=== PATIENT | male | born 1960 | race Caucasian/White ===

== ENCOUNTER 2020-12-15 11:45 | Inpatient (IN) ==
[2020-12-15] MEDS ORDERED: SODIUM CHLORIDE 0.9% 1,000 ML IV STA (12:25)
[2020-12-15 12:43] LABS: Basophils # 0.1 10*3/uL (0.0-0.2); Basophils % 0.4 % (0.0-0.8); Eosinophils # 0.1 10*3/uL (0.0-0.87); Eosinophils % 0.4 % (0.00-10.9); Hematocrit 35.2 VOL% (42.0-52.0); Hemoglobin 12.8 GM/DL (14.0-18.0); Immature Granulocytes Absolute 0.13 #; Lymphocytes # 1.9 10*3/uL (1.4-4.0); Lymphocytes % 14.2 % (21.2-54.2); Mean Corpuscular HGB Conc 36.4 GM/DL (32-36); Monocytes % 10.3 % (1.7-12.7); Neutrophils % 73.7 % (38.7-73.9); Platelet Count 358 T/CUMM (130-400); Red Blood Count 3.63 MC/CUMM (3.8-5.5); Red Cell Distribution Width 12.1 % (9.3-17.3); White Blood Count 13.5 T/CUMM (4-12)
[2020-12-15 13:10] LABS: Alanine Aminotransferase 21 U/L (16-61); Albumin 3.2 G/DL (3.4-5.0); Alkaline Phosphatase 90 U/L (45-117); Aspartate Amino Transferase 27 U/L (0-37); Blood Urea Nitrogen 13 MG/DL (7-18); Calcium 8.7 MG/DL (8.5-10.1); Carbon Dioxide 30 MMOL/L (21-32); Estimated Glom Filtration Rate 74 ML/MIN; Glucose 109 MG/DL (74-106); Osmolality,Calculated 258.9 MOS/KG (273-304); Sodium 129 MMOL/L (136-145); Total Protein 6.1 G/DL (6.4-8.2)
[2020-12-15 13:11] LABS: Potassium 2.5 MMOL/L (3.5-5.1)
[2020-12-15] MEDS ORDERED: SODIUM CHLOR 0.9% KCL 40 MEQ 40 MEQ/1,000 ML BAG IV SCH (13:30)
[2020-12-15] MEDS ORDERED: GLUCAGON 1 MG VIAL IM PRN (14:53)
[2020-12-15] MEDS ORDERED: DEXTROSE 50% 25 GM/50 ML VIAL IV PRN (14:53)
[2020-12-15] MEDS ORDERED: ONDANSETRON 4 MG/2 ML VIAL IV PRN (14:54)
[2020-12-15] MEDS ORDERED: ALBUTEROL 2.5 MG/3 ML NEB RESP TX PRN (14:54)
[2020-12-15] MEDS ORDERED: POTASSIUM CHLORIDE 20 MEQ/15 ML UDCUP PO ONE (14:56)
[2020-12-15] MEDS ORDERED: MAGNESIUM SULF RIDER 2 GM/50 ML PREMIX IV PRN (14:57)
[2020-12-15] MEDS ORDERED: MAGNESIUM SULF RIDER 4 GM/100 ML PREMIX IV PRN (14:57)
[2020-12-15] MEDS ORDERED: chlordiazePOXIDE 25 MG CAPSULE PO PRN (14:58)
[2020-12-15] MEDS ORDERED: ENOXAPARIN 40 MG/0.4 ML SYRINGE SUBCUT SCH (15:00)
[2020-12-15] MEDS ORDERED: NICOTINE 21 MG/24 HR PATCH TRANSDERM PRN (15:07)
[2020-12-15] MEDS: THIAMINE 100 MG TABLET PO SCH (18:25)
[2020-12-15] MEDS: FOLIC ACID 1 MG TABLET PO SCH (18:25)
[2020-12-15] MEDS: SODIUM CHLOR 0.9% KCL 20 MEQ 20 MEQ/1,000 ML BAG IV SCH (18:30)
[2020-12-15] MEDS: PANTOPRAZOLE 40 MG VIAL IV SCH ×2 (19:11→21:10)
[2020-12-16 02:22] LABS: Basophils % 0.4 % (0.0-0.8); Eosinophils # 0.1 10*3/uL (0.0-0.87); Eosinophils % 1.2 % (0.00-10.9); Hematocrit 32.9 VOL% (42.0-52.0); Hemoglobin 11.4 GM/DL (14.0-18.0); Immature Granulocytes % 0.7 %; Immature Granulocytes Absolute 0.07 #; Lymphocytes # 2.6 10*3/uL (1.4-4.0); Lymphocytes % 24.1 % (21.2-54.2); Mean Corpuscular HGB Conc 34.7 GM/DL (32-36); Mean Corpuscular Volume 99.1 FL (87-102); Mean Platelet Volume 9.9 FL (9.6-12.0); Monocytes % 9.3 % (1.7-12.7); Neutrophils % 64.3 % (38.7-73.9); Platelet Count 259 T/CUMM (130-400); Red Blood Count 3.32 MC/CUMM (3.8-5.5); Red Cell Distribution Width 12.2 % (9.3-17.3); White Blood Count 10.7 T/CUMM (4-12)
[2020-12-16 02:40] LABS: Calcium 8.1 MG/DL (8.5-10.1); Osmolality,Calculated 262.5 MOS/KG (273-304); Potassium 2.6 MMOL/L (3.5-5.1)
[2020-12-16] MEDS: SODIUM CHLOR 0.9% KCL 20 MEQ 20 MEQ/1,000 ML BAG IV SCH ×3 (06:18→23:09)
[2020-12-16] MEDS ORDERED: diphenhydrAMINE CAP 25 MG CAPSULE PO PRN (06:41)
[2020-12-16] MEDS ORDERED: MELATONIN 3 MG TABLET PO PRN (06:42)
[2020-12-16] MEDS: FOLIC ACID 1 MG TABLET PO SCH (08:40)
[2020-12-16] MEDS: THIAMINE 100 MG TABLET PO SCH (08:40)
[2020-12-16] MEDS: MULTIVITAMIN (BEROCCA) TABLET PO SCH (08:40)
[2020-12-16] MEDS: PANTOPRAZOLE 40 MG VIAL IV SCH ×2 (08:40→21:22)
[2020-12-16] MEDS ORDERED: POTASSIUM CHLORIDE 20 MEQ/15 ML UDCUP PO SCH ×2 (09:30→15:00)
[2020-12-16] MEDS: POTASSIUM BICARB EFFERVESCENT 20 MEQ TAB.EFF PO SCH ×3 (13:30→21:20)
[2020-12-16] MEDS: GABAPENTIN 100 MG CAPSULE PO SCH ×2 (15:13→21:20)
[2020-12-17 05:50] LABS: Calcium 8.2 MG/DL (8.5-10.1); Osmolality,Calculated 266.1 MOS/KG (273-304)
[2020-12-17] MEDS: SODIUM CHLOR 0.9% KCL 20 MEQ 20 MEQ/1,000 ML BAG IV SCH ×4 (06:12→20:53)
[2020-12-17] MEDS: POTASSIUM CHLORIDE RIDER 10 MEQ/100 ML PREMIX IV PRN ×2 (06:54→13:23)
[2020-12-17] MEDS: LACTATED RINGERS 1,000 ML IV SCH (07:26)
[2020-12-17] MEDS ORDERED: LIDOCAINE 2% 5 ML VIAL ONE (08:31)
[2020-12-17] MEDS ORDERED: fentaNYL 100 MCG/2 ML VIAL ONE (08:31)
[2020-12-17] MEDS ORDERED: propofoL 200 MG/20 ML VIAL IV ONE (08:31)
[2020-12-17] MEDS: MULTIVITAMIN (BEROCCA) TABLET PO SCH (10:13)
[2020-12-17] MEDS: POTASSIUM BICARB EFFERVESCENT 20 MEQ TAB.EFF PO SCH ×4 (10:13→20:53)
[2020-12-17] MEDS: GABAPENTIN 100 MG CAPSULE PO SCH ×3 (10:13→20:53)
[2020-12-17] MEDS: THIAMINE 100 MG TABLET PO SCH (10:13)
[2020-12-17] MEDS: FOLIC ACID 1 MG TABLET PO SCH (10:13)
[2020-12-17] MEDS: LOSARTAN/HCTZ 50-12.5 MG TABLET PO SCH (10:13)
[2020-12-17] MEDS: PANTOPRAZOLE 40 MG VIAL IV SCH ×2 (10:14→20:53)
[2020-12-18] MEDS: ACETAMINOPHEN 325 MG TABLET PO PRN ×2 (05:03→09:55)
[2020-12-18] MEDS: SODIUM CHLOR 0.9% KCL 20 MEQ 20 MEQ/1,000 ML BAG IV SCH (07:43)
[2020-12-18] MEDS: LACTATED RINGERS 1,000 ML IV SCH (07:43)
[2020-12-18] MEDS: MULTIVITAMIN (BEROCCA) TABLET PO SCH (08:36)
[2020-12-18] MEDS: PANTOPRAZOLE 40 MG VIAL IV SCH (08:37)
[2020-12-18] MEDS: THIAMINE 100 MG TABLET PO SCH (08:37)
[2020-12-18] MEDS: GABAPENTIN 100 MG CAPSULE PO SCH (08:37)
[2020-12-18] MEDS: POTASSIUM BICARB EFFERVESCENT 20 MEQ TAB.EFF PO SCH (08:37)
[2020-12-18] MEDS: LOSARTAN/HCTZ 50-12.5 MG TABLET PO SCH (08:37)
[2020-12-18] MEDS: FOLIC ACID 1 MG TABLET PO SCH (08:38)
[2020-12-18 11:23] VITALS: BP 151/90
== END 2020-12-18 13:38 | disposition home or self-care (01) | DRG 392 ==
LOC: N.ED 11:45 → N.EDINP 14:53 → SUATTDRO 14:53 → N.EDINP 17:46 → N.3E 18:04
PROVIDERS: ADMIT Emergency Medicine; ATTEND Hospitalist

== ENCOUNTER 2021-01-02 12:03 | Observation (INO) ==
[2021-01-02 13:03] LABS: Basophils % 0.1 % (0.0-0.8); Eosinophils % 0.5 % (0.00-10.9); Hematocrit 31.4 VOL% (42.0-52.0); Hemoglobin 10.8 GM/DL (14.0-18.0); Immature Granulocytes % 0.9 %; Immature Granulocytes Absolute 0.08 #; Lymphocytes # 1.2 10*3/uL (1.4-4.0); Lymphocytes % 13.8 % (21.2-54.2); Mean Corpuscular HGB Conc 34.4 GM/DL (32-36); Mean Corpuscular Volume 100.3 FL (87-102); Mean Platelet Volume 9.6 FL (9.6-12.0); Monocytes % 9.4 % (1.7-12.7); Neutrophils % 75.3 % (38.7-73.9); Platelet Count 246 T/CUMM (130-400); Red Blood Count 3.13 MC/CUMM (3.8-5.5); Red Cell Distribution Width 12.9 % (9.3-17.3); White Blood Count 8.8 T/CUMM (4-12)
[2021-01-02 13:17] LABS: Albumin 2.7 G/DL (3.4-5.0); Bilirubin,Total 0.6 MG/DL (0.20-1.00); Calcium 7.4 MG/DL (8.5-10.1); Osmolality,Calculated 267.4 MOS/KG (273-304); Potassium 2.8 MMOL/L (3.5-5.1); Total Protein 5.6 G/DL (6.4-8.2)
[2021-01-02 13:24] LABS: INR 1.2; PT Patient Result 13.2 SECS (10.5-12.0)
[2021-01-02 13:37] LABS: Barbiturates Screen,Urine Negative (Negative); Benzodiazepines Screen,Urine Negative (Negative); Cannabinoid Screen,Urine Positive (Negative); Opiate Screen,Urine Positive (Negative); Phencyclidine Screen,Urine Negative (Negative)
[2021-01-02] MEDS ORDERED: SODIUM CHLORIDE 0.9% 2,000 ML IV STA (14:09)
[2021-01-02] MEDS ORDERED: VANCOMYCIN INJ 1,000 MG in SODIUM CHLORIDE 0.9% 250 ML IV STA (14:20)
[2021-01-02] MEDS ORDERED: PIPERACILLIN/TAZOBACTAM 3,375 MG in SODIUM CHLORIDE 0.9% 100 ML IV STA (14:20)
[2021-01-02] MEDS ORDERED: MAGNESIUM SULF RIDER 4 GM/100 ML PREMIX IV PRN (15:41)
[2021-01-02] MEDS ORDERED: MAGNESIUM SULF RIDER 2 GM/50 ML PREMIX IV PRN (15:41)
[2021-01-02] MEDS ORDERED: ACETAMINOPHEN 325 MG TABLET PO PRN (15:42)
[2021-01-02] MEDS ORDERED: DEXTROSE 50% 25 GM/50 ML VIAL IV PRN (15:42)
[2021-01-02] MEDS ORDERED: NICOTINE 21 MG/24 HR PATCH TRANSDERM PRN (15:42)
[2021-01-02] MEDS ORDERED: LACTULOSE 20 GM/30 ML UDCUP PO PRN (15:42)
[2021-01-02] MEDS ORDERED: ONDANSETRON 4 MG/2 ML VIAL IV PRN (15:42)
[2021-01-02] MEDS ORDERED: GLUCAGON 1 MG VIAL IM PRN (15:42)
[2021-01-02] MEDS ORDERED: SIMETHICONE CHEW 125 MG TABLET PO PRN (15:42)
[2021-01-02] MEDS: DEXT 5% NACL 0.9% KCL 40 MEQ 40 MEQ/1,000 ML BAG IV SCH (16:02)
[2021-01-02] MEDS: LACTULOSE 20 GM/30 ML UDCUP PO SCH ×2 (16:15→21:00)
[2021-01-02] MEDS: ENOXAPARIN 40 MG/0.4 ML SYRINGE SUBCUT SCH (16:15)
[2021-01-02] MEDS: PANTOPRAZOLE 40 MG TABLET PO SCH (21:00)
[2021-01-02] MEDS: PIPERACILLIN/TAZOBACTAM 3,375 MG in SODIUM CHLORIDE 0.9% 100 ML IV SCH (23:45)
[2021-01-02] MEDS: ALBUTEROL 2.5 MG/3 ML NEB RESP TX PRN (23:58)
[2021-01-03] MEDS: ALBUTEROL/IPRATROPIUM 3 ML NEB RESP TX SCH ×5 (00:05→20:00)
[2021-01-03 02:23] LABS: Basophils % 0.1 % (0.0-0.8); Eosinophils # 0.2 10*3/uL (0.0-0.87); Hematocrit 30.9 VOL% (42.0-52.0); Hemoglobin 10.4 GM/DL (14.0-18.0); Immature Granulocytes % 0.9 %; Immature Granulocytes Absolute 0.07 #; Lymphocytes % 24.3 % (21.2-54.2); Mean Corpuscular HGB Conc 33.7 GM/DL (32-36); Mean Corpuscular Volume 101.6 FL (87-102); Mean Platelet Volume 9.3 FL (9.6-12.0); Monocytes % 11.7 % (1.7-12.7); Platelet Count 209 T/CUMM (130-400); Red Blood Count 3.04 MC/CUMM (3.8-5.5); Red Cell Distribution Width 13.1 % (9.3-17.3); White Blood Count 8.2 T/CUMM (4-12)
[2021-01-03 02:46] LABS: Albumin 2.5 G/DL (3.4-5.0); Bilirubin,Total 1.5 MG/DL (0.20-1.00); Calcium 7.2 MG/DL (8.5-10.1); Osmolality,Calculated 267.1 MOS/KG (273-304); Potassium 2.9 MMOL/L (3.5-5.1); Total Protein 5.7 G/DL (6.4-8.2)
[2021-01-03 02:49] LABS: Bilirubin,Urine Negative (Negative); Blood, Urine Negative (Negative); Glucose,Urine (UA) Negative (Negative); Ketones,Urine Negative (Negative); Mucus,Urine Occasional /LPF (Occasional); Nitrite,Urine Negative (Negative); Protein,Urine Negative; RBC,Urine 2 /HPF (0-4); Squamous Epithelial Cell,Urine Occasional /HPF (0-10); Urine Appearance CLEAR (Clear); Urine Color Yellow (Yellow); Urine Specific Gravity 1.044 (1.001-1.035); Urine Urobilinogen < 2.0 EU/DL (0.2-1.0)
[2021-01-03] MEDS: ALBUTEROL 2.5 MG/3 ML NEB RESP TX PRN ×2 (05:19→09:58)
[2021-01-03] MEDS: DEXT 5% NACL 0.9% KCL 40 MEQ 40 MEQ/1,000 ML BAG IV SCH ×2 (06:12→17:23)
[2021-01-03] MEDS: PIPERACILLIN/TAZOBACTAM 3,375 MG in SODIUM CHLORIDE 0.9% 100 ML IV SCH (06:13)
[2021-01-03] MEDS: THIAMINE 100 MG TABLET PO SCH (09:00)
[2021-01-03] MEDS: MULTIVITAMIN (CENTRUM) TABLET PO SCH (09:00)
[2021-01-03] MEDS: PANTOPRAZOLE 40 MG TABLET PO SCH ×3 (09:00→21:19)
[2021-01-03] MEDS: FOLIC ACID 1 MG TABLET PO SCH (09:00)
[2021-01-03] MEDS: LACTULOSE 20 GM/30 ML UDCUP PO SCH ×2 (09:02→21:21)
[2021-01-03] MEDS: POTASSIUM CHLORIDE 20 MEQ TABLET PO PRN ×3 (13:02→17:25)
[2021-01-03] MEDS: ENOXAPARIN 40 MG/0.4 ML SYRINGE SUBCUT SCH (17:25)
[2021-01-04] MEDS: ALBUTEROL/IPRATROPIUM 3 ML NEB RESP TX SCH ×4 (02:51→11:16)
[2021-01-04 05:39] LABS: Calcium 7.4 MG/DL (8.5-10.1); Osmolality,Calculated 274.5 MOS/KG (273-304); Potassium 4.1 MMOL/L (3.5-5.1)
[2021-01-04] MEDS: DEXT 5% NACL 0.9% KCL 40 MEQ 40 MEQ/1,000 ML BAG IV SCH (06:01)
[2021-01-04] MEDS ORDERED: AZITHROMYCIN 250 MG TABLET PO SCH (09:00)
[2021-01-04] MEDS: FOLIC ACID 1 MG TABLET PO SCH (09:36)
[2021-01-04] MEDS: MULTIVITAMIN (CENTRUM) TABLET PO SCH (09:37)
[2021-01-04] MEDS: THIAMINE 100 MG TABLET PO SCH (09:37)
[2021-01-04] MEDS: LACTULOSE 20 GM/30 ML UDCUP PO SCH (09:37)
[2021-01-04] MEDS: PANTOPRAZOLE 40 MG TABLET PO SCH (09:37)
[2021-01-04 11:29] VITALS: BP 120/65
== END 2021-01-04 14:05 | disposition home or self-care (01) ==
LOC: N.EDINP 12:03 → N.ED 12:03 → SUATTDRO 14:54 → N.3E 16:09
PROVIDERS: ADMIT Internal Medicine; ATTEND Internal Medicine

== ENCOUNTER 2021-01-17 16:21 | Inpatient (IN) ==
[2021-01-17] MEDS ORDERED: SODIUM CHLORIDE 0.9% 500 ML IV STA (18:59)
[2021-01-17] MEDS ORDERED: PIPERACILLIN/TAZOBACTAM 3,375 MG in SODIUM CHLORIDE 0.9% 100 ML IV STA (18:59)
[2021-01-17 19:04] LABS: Basophils % 0.3 % (0.0-0.8); Eosinophils # 0.1 10*3/uL (0.0-0.87); Eosinophils % 0.7 % (0.00-10.9); Hematocrit 34.9 VOL% (42.0-52.0); Hemoglobin 12.6 GM/DL (14.0-18.0); Immature Granulocytes % 0.4 %; Immature Granulocytes Absolute 0.05 #; Lymphocytes # 2.4 10*3/uL (1.4-4.0); Mean Corpuscular HGB Conc 36.1 GM/DL (32-36); Mean Platelet Volume 9.5 FL (9.6-12.0); Monocytes % 8.9 % (1.7-12.7); Neutrophils % 69.7 % (38.7-73.9); Platelet Count 334 T/CUMM (130-400); Red Blood Count 3.56 MC/CUMM (3.8-5.5); Red Cell Distribution Width 13.3 % (9.3-17.3); White Blood Count 11.8 T/CUMM (4-12)
[2021-01-17 19:21] LABS: Albumin 2.6 G/DL (3.4-5.0); Bilirubin,Total 0.8 MG/DL (0.20-1.00); CKMB % 12.5 %; Calcium 7.7 MG/DL (8.5-10.1); Osmolality,Calculated 257.7 MOS/KG (273-304); Total Protein 5.9 G/DL (6.4-8.2)
[2021-01-17 19:26] LABS: Potassium 2.4 MMOL/L (3.5-5.1)
[2021-01-17] MEDS ORDERED: POTASSIUM CHLORIDE RIDER 20 MEQ/100 ML PREMIX IV STA (20:13)
[2021-01-17] MEDS ORDERED: SODIUM CHLORIDE 0.9% 1,000 ML IV STA (20:13)
[2021-01-17] MEDS ORDERED: MAGNESIUM SULF RIDER 2 GM/50 ML PREMIX IV STA ×2 (20:14→20:57)
[2021-01-17] MEDS ORDERED: hydrALAZINE 20 MG/1 ML VIAL IV PRN (20:51)
[2021-01-17] MEDS ORDERED: NICOTINE 21 MG/24 HR PATCH TRANSDERM PRN (20:51)
[2021-01-17] MEDS ORDERED: ACETAMINOPHEN 325 MG TABLET PO PRN (20:51)
[2021-01-17] MEDS ORDERED: diphenhydrAMINE CAP 25 MG CAPSULE PO PRN (20:51)
[2021-01-17] MEDS ORDERED: GLUCAGON 1 MG VIAL IM PRN (20:51)
[2021-01-17] MEDS ORDERED: DEXTROSE 50% 25 GM/50 ML VIAL IV PRN (20:51)
[2021-01-17] MEDS ORDERED: guaiFENesin/DM ER 600-30 MG TABLET PO PRN (20:51)
[2021-01-17] MEDS ORDERED: DOCUSATE SODIUM 100 MG CAPSULE PO PRN (20:51)
[2021-01-17 20:54] LABS: Bacteria,Urine Occasional /HPF (Few); Bilirubin,Urine Negative (Negative); Blood, Urine Small mg/dL (Negative); Glucose,Urine (UA) Negative (Negative); Ketones,Urine Negative (Negative); Nitrite,Urine Negative (Negative); Protein,Urine Negative; RBC,Urine 2 /HPF (0-4); Urine Appearance CLEAR (Clear); Urine Color Yellow (Yellow); Urine Specific Gravity 1.003 (1.001-1.035); Urine Urobilinogen < 2.0 EU/DL (0.2-1.0)
[2021-01-17] MEDS ORDERED: POTASSIUM CHLORIDE RIDER 10 MEQ/100 ML PREMIX IV PRN (20:57)
[2021-01-17 20:58] LABS: Barbiturates Screen,Urine Negative (Negative); Benzodiazepines Screen,Urine Negative (Negative); Cannabinoid Screen,Urine Negative (Negative); Opiate Screen,Urine Negative (Negative); Phencyclidine Screen,Urine Negative (Negative)
[2021-01-17] MEDS ORDERED: POTASSIUM CHLORIDE 20 MEQ TABLET PO STA (20:58)
[2021-01-17] MEDS: POTASSIUM CHLORIDE RIDER 10 MEQ/100 ML PREMIX IV SCH ×2 (21:08→22:05)
[2021-01-17] MEDS: AZITHROMYCIN INJ 500 MG in SODIUM CHLORIDE 0.9% 250 ML IV SCH (21:32)
[2021-01-17 23:04] LABS: Basophils % 0.1 % (0.0-0.8); Eosinophils # 0.1 10*3/uL (0.0-0.87); Eosinophils % 0.3 % (0.00-10.9); Hematocrit 34.5 VOL% (42.0-52.0); Hemoglobin 12.2 GM/DL (14.0-18.0); Immature Granulocytes % 0.6 %; Immature Granulocytes Absolute 0.08 #; Lymphocytes % 14.2 % (21.2-54.2); Mean Corpuscular HGB Conc 35.4 GM/DL (32-36); Mean Corpuscular Volume 98.9 FL (87-102); Mean Platelet Volume 9.3 FL (9.6-12.0); Monocytes % 8.3 % (1.7-12.7); Neutrophils % 76.5 % (38.7-73.9); Platelet Count 297 T/CUMM (130-400); Red Blood Count 3.49 MC/CUMM (3.8-5.5); Red Cell Distribution Width 13.5 % (9.3-17.3); White Blood Count 14.4 T/CUMM (4-12)
[2021-01-18 01:29] LABS: Basophils % 0.2 % (0.0-0.8); Eosinophils % 0.2 % (0.00-10.9); Hematocrit 34.5 VOL% (42.0-52.0); Hemoglobin 12.2 GM/DL (14.0-18.0); Immature Granulocytes % 0.5 %; Immature Granulocytes Absolute 0.07 #; Lymphocytes # 1.8 10*3/uL (1.4-4.0); Lymphocytes % 13.7 % (21.2-54.2); Mean Corpuscular HGB Conc 35.4 GM/DL (32-36); Mean Corpuscular Volume 98.3 FL (87-102); Mean Platelet Volume 9.2 FL (9.6-12.0); Monocytes % 7.8 % (1.7-12.7); Neutrophils % 77.6 % (38.7-73.9); Platelet Count 273 T/CUMM (130-400); Red Blood Count 3.51 MC/CUMM (3.8-5.5); Red Cell Distribution Width 13.5 % (9.3-17.3); White Blood Count 13.3 T/CUMM (4-12)
[2021-01-18 01:51] LABS: Calcium 7.6 MG/DL (8.5-10.1); Osmolality,Calculated 263.4 MOS/KG (273-304)
[2021-01-18 01:54] LABS: Potassium 2.5 MMOL/L (3.5-5.1)
[2021-01-18] MEDS: ZALEPLON 5 MG CAPSULE PO PRN ×2 (01:57→21:14)
[2021-01-18] MEDS: SODIUM CHLOR 0.9% KCL 40 MEQ 40 MEQ/1,000 ML BAG IV SCH ×2 (01:57→11:59)
[2021-01-18] MEDS: cefTRIAXone 1,000 MG in SODIUM CHLORIDE 0.9% 100 ML IV SCH (05:55)
[2021-01-18] MEDS ORDERED: MAGNESIUM SULF RIDER 2 GM/50 ML PREMIX IV ONE (09:30)
[2021-01-18] MEDS: POTASSIUM CHLORIDE 20 MEQ TABLET PO SCH ×3 (10:45→21:14)
[2021-01-18] MEDS: ASPIRIN EC 81 MG TABLET PO SCH (10:45)
[2021-01-18] MEDS: METOPROLOL TARTRATE 25 MG TABLET PO SCH ×2 (10:46→21:14)
[2021-01-18] MEDS: NICOTINE 21 MG/24 HR PATCH TRANSDERM SCH (15:23)
[2021-01-18] MEDS: PANTOPRAZOLE 40 MG TABLET PO SCH (21:15)
[2021-01-18] MEDS: AZITHROMYCIN INJ 500 MG in SODIUM CHLORIDE 0.9% 250 ML IV SCH (21:15)
[2021-01-19] MEDS: SODIUM CHLOR 0.9% KCL 40 MEQ 40 MEQ/1,000 ML BAG IV SCH (01:26)
[2021-01-19] MEDS: cefTRIAXone 1,000 MG in SODIUM CHLORIDE 0.9% 100 ML IV SCH (05:16)
[2021-01-19 06:04] LABS: Basophils % 0.4 % (0.0-0.8); Eosinophils # 0.2 10*3/uL (0.0-0.87); Hematocrit 32.2 VOL% (42.0-52.0); Hemoglobin 10.9 GM/DL (14.0-18.0); Immature Granulocytes % 0.4 %; Immature Granulocytes Absolute 0.03 #; Lymphocytes # 1.9 10*3/uL (1.4-4.0); Lymphocytes % 24.4 % (21.2-54.2); Mean Corpuscular HGB Conc 33.9 GM/DL (32-36); Mean Corpuscular Volume 102.2 FL (87-102); Mean Platelet Volume 9.7 FL (9.6-12.0); Monocytes % 8.8 % (1.7-12.7); Platelet Count 203 T/CUMM (130-400); Red Blood Count 3.15 MC/CUMM (3.8-5.5); Red Cell Distribution Width 13.8 % (9.3-17.3); White Blood Count 7.6 T/CUMM (4-12)
[2021-01-19 06:21] LABS: Calcium 7.7 MG/DL (8.5-10.1); Potassium 3.2 MMOL/L (3.5-5.1)
[2021-01-19 08:09] VITALS: BP 123/67
[2021-01-19] MEDS: ASPIRIN EC 81 MG TABLET PO SCH (08:15)
[2021-01-19] MEDS: METOPROLOL TARTRATE 25 MG TABLET PO SCH (08:15)
[2021-01-19] MEDS: POTASSIUM CHLORIDE 20 MEQ TABLET PO SCH (08:15)
[2021-01-19] MEDS: PANTOPRAZOLE 40 MG TABLET PO SCH (08:15)
[2021-01-19] MEDS: NICOTINE 21 MG/24 HR PATCH TRANSDERM SCH (08:16)
[2021-01-19] MEDS ORDERED: MONTELUKAST 10 MG TABLET PO SCH (09:00)
== END 2021-01-19 10:25 | disposition left against medical advice (07) | DRG 194 ==
LOC: N.ED 16:21 → N.EDINP 20:51 → N.TELEN 23:51
PROVIDERS: ADMIT Hospitalist; ATTEND Hospitalist

== ENCOUNTER 2021-02-15 13:23 | Inpatient (IN) ==
[2021-02-15] MEDS ORDERED: SODIUM CHLORIDE 0.9% 500 ML IV STA ×2 (14:22→15:42)
[2021-02-15 15:16] LABS: Basophils % 0.3 % (0.0-0.8); Eosinophils # 0.1 10*3/uL (0.0-0.87); Eosinophils % 0.8 % (0.00-10.9); Hemoglobin 12.7 GM/DL (14.0-18.0); Immature Granulocytes % 0.3 %; Immature Granulocytes Absolute 0.03 #; Lymphocytes # 2.6 10*3/uL (1.4-4.0); Mean Corpuscular HGB Conc 34.3 GM/DL (32-36); Mean Corpuscular Volume 101.1 FL (87-102); Mean Platelet Volume 9.4 FL (9.6-12.0); Monocytes % 8.4 % (1.7-12.7); Neutrophils % 61.2 % (38.7-73.9); Platelet Count 259 T/CUMM (130-400); Red Blood Count 3.66 MC/CUMM (3.8-5.5); Red Cell Distribution Width 13.4 % (9.3-17.3)
[2021-02-15 15:26] LABS: Alanine Aminotransferase 19 U/L (16-61); Albumin 2.9 G/DL (3.4-5.0); Alkaline Phosphatase 126 U/L (45-117); Aspartate Amino Transferase 34 U/L (0-37); Blood Urea Nitrogen 3 MG/DL (7-18); Calcium 7.5 MG/DL (8.5-10.1); Carbon Dioxide 33 MMOL/L (21-32); Estimated Glom Filtration Rate 127 ML/MIN; Glucose 97 MG/DL (74-106); Lactic Acid 4.4 MMOL/L (0.4-2.0); Osmolality,Calculated 266.1 MOS/KG (273-304); Potassium 2.6 MMOL/L (3.5-5.1); Sodium 135 MMOL/L (136-145); Total Protein 6.3 G/DL (6.4-8.2)
[2021-02-15 15:40] LABS: Bilirubin,Urine Negative (Negative); Blood, Urine Negative (Negative); Glucose,Urine (UA) Negative (Negative); Hyaline Casts,Urine 1 /LPF (0-3); Ketones,Urine Negative (Negative); Mucus,Urine Occasional /LPF (Occasional); Nitrite,Urine Negative (Negative); Protein,Urine Negative; RBC,Urine 2 /HPF (0-4); Urine Appearance CLEAR (Clear); Urine Color Yellow (Yellow); Urine Urobilinogen < 2.0 EU/DL (0.2-1.0)
[2021-02-15] MEDS ORDERED: ALBUTEROL 2.5 MG/3 ML NEB RESP TX PRN (16:30)
[2021-02-15] MEDS ORDERED: ALUMINUM/MAGNES/SIMETH MAX STR 30 ML UDCUP PO PRN (16:30)
[2021-02-15] MEDS ORDERED: diphenhydrAMINE CAP 25 MG CAPSULE PO PRN (16:30)
[2021-02-15] MEDS ORDERED: ONDANSETRON 4 MG/2 ML VIAL IV PRN (16:30)
[2021-02-15] MEDS ORDERED: chlordiazePOXIDE 25 MG CAPSULE PO PRN (16:37)
[2021-02-15] MEDS ORDERED: DIPHENHYDRAMINE ACETAMINOPHEN PO PRN (16:38)
[2021-02-15] MEDS: ENOXAPARIN 40 MG/0.4 ML SYRINGE SUBCUT SCH (17:32)
[2021-02-15] MEDS: FOLIC ACID 1 MG TABLET PO SCH (17:33)
[2021-02-15] MEDS: HYDROCORTISONE 100 MG VIAL IV SCH (17:33)
[2021-02-15] MEDS: PANTOPRAZOLE 40 MG TABLET PO SCH (17:33)
[2021-02-15] MEDS: THIAMINE 100 MG TABLET PO SCH (17:33)
[2021-02-15] MEDS: NICOTINE 14 MG/24 HR PATCH TRANSDERM SCH (19:30)
[2021-02-15] MEDS: ceFAZolin 2,000 MG/50 ML DUPLEX IV SCH (19:30)
[2021-02-15] MEDS: ALBUTEROL/IPRATROPIUM 3 ML NEB RESP TX SCH (20:00)
[2021-02-15] MEDS: NEOMYCIN/POLYMYXIN/BACITRACIN OINT 0.9 GM PACK TOP SCH (20:30)
[2021-02-15] MEDS: POTASSIUM CHLORIDE 10 MEQ TABLET PO SCH (20:45)
[2021-02-15] MEDS: GABAPENTIN 300 MG CAPSULE PO SCH (20:46)
[2021-02-16] MEDS: HYDROCORTISONE 100 MG VIAL IV SCH ×3 (00:35→20:42)
[2021-02-16] MEDS: ALBUTEROL/IPRATROPIUM 3 ML NEB RESP TX SCH ×5 (01:15→20:30)
[2021-02-16 04:59] LABS: Hematocrit 34.2 VOL% (42.0-52.0); Immature Granulocytes % 0.5 %; Immature Granulocytes Absolute 0.03 #; Lymphocytes # 0.7 10*3/uL (1.4-4.0); Lymphocytes % 10.6 % (21.2-54.2); Mean Corpuscular HGB Conc 35.1 GM/DL (32-36); Mean Corpuscular Volume 102.4 FL (87-102); Mean Platelet Volume 9.2 FL (9.6-12.0); Monocytes % 3.4 % (1.7-12.7); Neutrophils % 85.5 % (38.7-73.9); Platelet Count 200 T/CUMM (130-400); Red Blood Count 3.34 MC/CUMM (3.8-5.5); Red Cell Distribution Width 13.3 % (9.3-17.3); White Blood Count 6.1 T/CUMM (4-12)
[2021-02-16 05:18] LABS: Calcium 7.2 MG/DL (8.5-10.1); Osmolality,Calculated 272.8 MOS/KG (273-304); Potassium 3.1 MMOL/L (3.5-5.1)
[2021-02-16 05:21] LABS: INR 1.2; PT Patient Result 12.8 SECS (10.5-12.0)
[2021-02-16] MEDS: ceFAZolin 2,000 MG/50 ML DUPLEX IV SCH ×5 (05:45→22:43)
[2021-02-16] MEDS: PANTOPRAZOLE 40 MG TABLET PO SCH (09:07)
[2021-02-16] MEDS: GABAPENTIN 300 MG CAPSULE PO SCH ×3 (09:07→20:40)
[2021-02-16] MEDS: THIAMINE 100 MG TABLET PO SCH (09:07)
[2021-02-16] MEDS: POTASSIUM CHLORIDE 10 MEQ TABLET PO SCH ×2 (09:07→20:41)
[2021-02-16] MEDS: predniSONE 5 MG TABLET PO SCH (09:07)
[2021-02-16] MEDS: FOLIC ACID 1 MG TABLET PO SCH (09:07)
[2021-02-16] MEDS: MONTELUKAST 10 MG TABLET PO SCH (09:07)
[2021-02-16] MEDS ORDERED: MAGNESIUM SULF RIDER 2 GM/50 ML PREMIX IV ONE (09:16)
[2021-02-16] MEDS ORDERED: POTASSIUM CHLORIDE 20 MEQ TABLET PO ONE (09:16)
[2021-02-16] MEDS: Fluticasone-Umeclidin-Vilanter [Trelegy Ellipta] 100-62.5-25 mcg INH SCH (11:29)
[2021-02-16] MEDS: NEOMYCIN/POLYMYXIN/BACITRACIN OINT 0.9 GM PACK TOP SCH ×2 (11:29→20:41)
[2021-02-16] MEDS: NICOTINE 14 MG/24 HR PATCH TRANSDERM SCH (11:59)
[2021-02-16] MEDS: ENOXAPARIN 40 MG/0.4 ML SYRINGE SUBCUT SCH (16:19)
[2021-02-16] MEDS ORDERED: NICOTINE 14 MG/24 HR PATCH TRANSDERM SCH (17:21)
[2021-02-17] MEDS: ALBUTEROL/IPRATROPIUM 3 ML NEB RESP TX SCH ×4 (03:23→20:25)
[2021-02-17] MEDS: NEOMYCIN/POLYMYXIN/BACITRACIN OINT 0.9 GM PACK TOP SCH ×3 (04:40→22:37)
[2021-02-17] MEDS: ceFAZolin 2,000 MG/50 ML DUPLEX IV SCH (04:43)
[2021-02-17 04:44] LABS: Basophils % 0.1 % (0.0-0.8); Hematocrit 34.5 VOL% (42.0-52.0); Hemoglobin 11.7 GM/DL (14.0-18.0); Immature Granulocytes % 0.6 %; Immature Granulocytes Absolute 0.05 #; Lymphocytes # 1.3 10*3/uL (1.4-4.0); Lymphocytes % 16.9 % (21.2-54.2); Mean Corpuscular HGB Conc 33.9 GM/DL (32-36); Mean Corpuscular Volume 104.5 FL (87-102); Mean Platelet Volume 9.6 FL (9.6-12.0); Monocytes % 7.4 % (1.7-12.7); Platelet Count 190 T/CUMM (130-400); Red Cell Distribution Width 13.6 % (9.3-17.3); White Blood Count 7.9 T/CUMM (4-12)
[2021-02-17 05:11] LABS: Calcium 7.7 MG/DL (8.5-10.1); Osmolality,Calculated 281.4 MOS/KG (273-304); Potassium 2.9 MMOL/L (3.5-5.1)
[2021-02-17] MEDS: POTASSIUM CHLORIDE 20 MEQ TABLET PO PRN ×4 (05:25→13:07)
[2021-02-17] MEDS: PANTOPRAZOLE 40 MG TABLET PO SCH (08:19)
[2021-02-17] MEDS: MONTELUKAST 10 MG TABLET PO SCH (08:19)
[2021-02-17] MEDS: predniSONE 5 MG TABLET PO SCH (08:19)
[2021-02-17] MEDS: GABAPENTIN 300 MG CAPSULE PO SCH ×3 (08:19→21:26)
[2021-02-17] MEDS: THIAMINE 100 MG TABLET PO SCH (08:20)
[2021-02-17] MEDS: NICOTINE 14 MG/24 HR PATCH TRANSDERM SCH (08:20)
[2021-02-17] MEDS: HYDROCORTISONE 100 MG VIAL IV SCH (08:21)
[2021-02-17] MEDS: FOLIC ACID 1 MG TABLET PO SCH (08:34)
[2021-02-17] MEDS: POTASSIUM CHLORIDE 10 MEQ TABLET PO SCH ×2 (08:34→21:26)
[2021-02-17] MEDS ORDERED: MAGNESIUM SULF RIDER 2 GM/50 ML PREMIX IV ONE (08:54)
[2021-02-17] MEDS: Fluticasone-Umeclidin-Vilanter [Trelegy Ellipta] 100-62.5-25 mcg INH SCH (09:26)
[2021-02-17] MEDS: ENOXAPARIN 40 MG/0.4 ML SYRINGE SUBCUT SCH (16:00)
[2021-02-18] MEDS: ALBUTEROL/IPRATROPIUM 3 ML NEB RESP TX SCH ×2 (02:03→07:30)
[2021-02-18 06:10] LABS: Calcium 7.5 MG/DL (8.5-10.1); Osmolality,Calculated 277.5 MOS/KG (273-304)
[2021-02-18] MEDS: NEOMYCIN/POLYMYXIN/BACITRACIN OINT 0.9 GM PACK TOP SCH (08:56)
[2021-02-18] MEDS: THIAMINE 100 MG TABLET PO SCH (08:56)
[2021-02-18] MEDS: GABAPENTIN 300 MG CAPSULE PO SCH (08:56)
[2021-02-18] MEDS ORDERED: POTASSIUM CHLORIDE 20 MEQ TABLET PO ONE ×2 (08:56→11:00)
[2021-02-18] MEDS: FOLIC ACID 1 MG TABLET PO SCH (08:57)
[2021-02-18] MEDS: predniSONE 5 MG TABLET PO SCH (08:57)
[2021-02-18] MEDS: PANTOPRAZOLE 40 MG TABLET PO SCH (08:57)
[2021-02-18] MEDS: MONTELUKAST 10 MG TABLET PO SCH (08:57)
[2021-02-18] MEDS: POTASSIUM CHLORIDE 10 MEQ TABLET PO SCH (08:57)
[2021-02-18] MEDS: NICOTINE 14 MG/24 HR PATCH TRANSDERM SCH (09:48)
[2021-02-18] MEDS: Fluticasone-Umeclidin-Vilanter [Trelegy Ellipta] 100-62.5-25 mcg INH SCH (09:48)
[2021-02-18 11:40] VITALS: BP 131/80
== END 2021-02-18 11:50 | disposition home health service (06) | DRG 74 ==
LOC: N.ED 13:23 → N.EDINP 16:01 → SUATTDRO 16:01 → N.CC 16:53 → N.5E 02-16 17:23
PROVIDERS: ADMIT Internal Medicine; ATTEND Internal Medicine

== ENCOUNTER 2021-10-02 15:22 | Inpatient (IN) ==
[2021-10-02] MEDS ORDERED: VANCOMYCIN INJ 1,000 MG in SODIUM CHLORIDE 0.9% 250 ML IV STA (16:22)
[2021-10-02 16:46] LABS: Basophils % 0.5 % (0.0-0.8); Eosinophils # 0.2 10*3/uL (0.0-0.87); Eosinophils % 2.4 % (0.00-10.9); Hematocrit 29.4 VOL% (42.0-52.0); Hemoglobin 9.7 GM/DL (14.0-18.0); Immature Granulocytes % 0.3 %; Immature Granulocytes Absolute 0.02 #; Lymphocytes # 1.8 10*3/uL (1.4-4.0); Mean Corpuscular Volume 89.4 FL (87-102); Mean Platelet Volume 9.5 FL (9.6-12.0); Monocytes # 0.8 10*3/uL (0.11-0.8); Monocytes % 9.6 % (1.7-12.7); Neutrophils % 64.2 % (38.7-73.9); Platelet Count 310 T/CUMM (130-400); Red Blood Count 3.29 MC/CUMM (3.8-5.5); Red Cell Distribution Width 13.5 % (9.3-17.3); White Blood Count 7.9 T/CUMM (4-12)
[2021-10-02 17:13] LABS: Alanine Aminotransferase 15 U/L (16-61); Albumin 2.9 G/DL (3.4-5.0); Alkaline Phosphatase 62 U/L (45-117); Aspartate Amino Transferase 13 U/L (0-37); Bilirubin,Total < 0.39 MG/DL (0.20-1.00); Blood Urea Nitrogen 16 MG/DL (7-18); Calcium 9.2 MG/DL (8.5-10.1); Carbon Dioxide 30 MMOL/L (21-32); Chloride 103 MMOL/L (98-107); Glucose 91 MG/DL (74-106); Osmolality,Calculated 277.5 MOS/KG (273-304); Potassium 3.6 MMOL/L (3.5-5.1); Sodium 139 MMOL/L (136-145); Total Protein 7.2 G/DL (6.4-8.2)
[2021-10-02] MEDS ORDERED: GLUCAGON 1 MG VIAL IM PRN (17:59)
[2021-10-02] MEDS ORDERED: ONDANSETRON 4 MG/2 ML VIAL IV PRN (17:59)
[2021-10-02] MEDS ORDERED: DEXTROSE 10% 250 ML BAG IV PRN (18:48)
[2021-10-02] MEDS: ENOXAPARIN 40 MG/0.4 ML SYRINGE SUBCUT SCH (21:14)
[2021-10-02] MEDS: POTASSIUM CHLORIDE 10 MEQ TABLET PO SCH (21:15)
[2021-10-02] MEDS: ZALEPLON 5 MG CAPSULE PO PRN (21:15)
[2021-10-02] MEDS: SODIUM CHLORIDE 0.45% 1,000 ML IV SCH (21:16)
[2021-10-02] MEDS: PIPERACILLIN/TAZOBACTAM 3,375 MG in SODIUM CHLORIDE 0.9% 100 ML IV SCH (21:17)
[2021-10-02] MEDS ORDERED: ALBUTEROL 90 MCG INH PRN (23:00)
[2021-10-03] MEDS: PIPERACILLIN/TAZOBACTAM 3,375 MG in SODIUM CHLORIDE 0.9% 100 ML IV SCH ×2 (04:10→12:20)
[2021-10-03] MEDS: ALBUTEROL 2.5 MG/3 ML NEB RESP TX PRN (04:20)
[2021-10-03 05:15] LABS: Basophils % 0.6 % (0.0-0.8); Eosinophils # 0.3 10*3/uL (0.0-0.87); Eosinophils % 4.5 % (0.00-10.9); Hematocrit 28.1 VOL% (42.0-52.0); Hemoglobin 9.1 GM/DL (14.0-18.0); Immature Granulocytes % 0.5 %; Immature Granulocytes Absolute 0.03 #; Lymphocytes # 1.9 10*3/uL (1.4-4.0); Lymphocytes % 30.3 % (21.2-54.2); Mean Corpuscular HGB Conc 32.4 GM/DL (32-36); Mean Corpuscular Volume 89.8 FL (87-102); Mean Platelet Volume 9.7 FL (9.6-12.0); Monocytes # 0.7 10*3/uL (0.11-0.8); Monocytes % 10.4 % (1.7-12.7); Neutrophils % 53.7 % (38.7-73.9); Platelet Count 303 T/CUMM (130-400); Red Blood Count 3.13 MC/CUMM (3.8-5.5); Red Cell Distribution Width 13.5 % (9.3-17.3); White Blood Count 6.3 T/CUMM (4-12)
[2021-10-03 05:41] LABS: Calcium 9.4 MG/DL (8.5-10.1); Osmolality,Calculated 277.5 MOS/KG (273-304); Potassium 3.4 MMOL/L (3.5-5.1)
[2021-10-03] MEDS ORDERED: TUBERCULIN SKIN TEST 0.1 ML SYRINGE INTRADERM ONE (06:59)
[2021-10-03] MEDS: VANCOMYCIN INJ 1,500 MG in SODIUM CHLORIDE 0.9% 500 ML IV SCH ×2 (10:03→21:18)
[2021-10-03] MEDS: SODIUM CHLORIDE 0.45% 1,000 ML IV SCH (10:03)
[2021-10-03] MEDS: PANTOPRAZOLE 40 MG TABLET PO SCH (10:05)
[2021-10-03] MEDS: LOSARTAN/HCTZ 50-12.5 MG TABLET PO SCH (10:05)
[2021-10-03] MEDS: POTASSIUM CHLORIDE 10 MEQ TABLET PO SCH ×2 (10:05→21:19)
[2021-10-03 16:44] LABS: Barbiturates Screen,Urine Negative (Negative); Benzodiazepines Screen,Urine Negative (Negative); Cannabinoid Screen,Urine Negative (Negative); Opiate Screen,Urine Positive (Negative); Phencyclidine Screen,Urine Negative (Negative)
[2021-10-03] MEDS: ZALEPLON 5 MG CAPSULE PO PRN (21:19)
[2021-10-04] MEDS: PIPERACILLIN/TAZOBACTAM 3,375 MG in SODIUM CHLORIDE 0.9% 100 ML IV SCH ×2 (01:47→15:57)
[2021-10-04 04:54] LABS: Basophils # 0.1 10*3/uL (0.0-0.2); Basophils % 0.9 % (0.0-0.8); Eosinophils # 0.3 10*3/uL (0.0-0.87); Eosinophils % 4.8 % (0.00-10.9); Hematocrit 27.1 VOL% (42.0-52.0); Hemoglobin 8.8 GM/DL (14.0-18.0); Immature Granulocytes % 0.3 %; Immature Granulocytes Absolute 0.02 #; Lymphocytes # 1.7 10*3/uL (1.4-4.0); Lymphocytes % 28.8 % (21.2-54.2); Mean Corpuscular HGB Conc 32.5 GM/DL (32-36); Mean Platelet Volume 9.5 FL (9.6-12.0); Monocytes # 0.5 10*3/uL (0.11-0.8); Monocytes % 9.1 % (1.7-12.7); Neutrophils % 56.1 % (38.7-73.9); Platelet Count 289 T/CUMM (130-400); Red Blood Count 3.01 MC/CUMM (3.8-5.5); Red Cell Distribution Width 13.4 % (9.3-17.3); White Blood Count 5.8 T/CUMM (4-12)
[2021-10-04 05:20] LABS: Osmolality,Calculated 281.3 MOS/KG (273-304); Potassium 3.3 MMOL/L (3.5-5.1)
[2021-10-04] MEDS ORDERED: LACTATED RINGERS 1,000 ML IV SCH (07:30)
[2021-10-04] MEDS ORDERED: fentaNYL 100 MCG/2 ML VIAL ONE (08:08)
[2021-10-04] MEDS ORDERED: MIDAZOLAM 2 MG/2 ML VIAL ONE (08:08)
[2021-10-04] MEDS ORDERED: LIDOCAINE 2% 5 ML VIAL ONE (08:09)
[2021-10-04] MEDS ORDERED: propofoL 200 MG/20 ML VIAL IV ONE (08:09)
[2021-10-04] MEDS ORDERED: KETAMINE 500 MG/10 ML VIAL ONE (08:59)
[2021-10-04] MEDS ORDERED: HYDROmorphone 1 MG/1 ML SYRINGE ONE (10:04)
[2021-10-04] MEDS ORDERED: ONDANSETRON 4 MG/2 ML VIAL IV PRN (10:06)
[2021-10-04] MEDS ORDERED: HYDROmorphone 1 MG/1 ML SYRINGE IV PRN (10:06)
[2021-10-04] MEDS ORDERED: POTASSIUM CHLORIDE 20 MEQ TABLET PO ONE (11:00)
[2021-10-04] MEDS ORDERED: DEXTROSE 50% 25 GM/50 ML VIAL IV PRN (11:31)
[2021-10-04] MEDS: MORPHINE 2 MG/1 ML SYRINGE IV PRN ×4 (11:36→23:49)
[2021-10-04] MEDS: LOSARTAN/HCTZ 50-12.5 MG TABLET PO SCH (15:56)
[2021-10-04] MEDS: PANTOPRAZOLE 40 MG TABLET PO SCH (15:56)
[2021-10-04] MEDS: POTASSIUM CHLORIDE 10 MEQ TABLET PO SCH ×2 (15:56→20:39)
[2021-10-04] MEDS: VANCOMYCIN INJ 1,500 MG in SODIUM CHLORIDE 0.9% 500 ML IV SCH (16:47)
[2021-10-04] MEDS: SIMETHICONE CHEW 125 MG TABLET PO PRN (18:46)
[2021-10-04] MEDS: SODIUM CHLORIDE 0.45% 1,000 ML IV SCH (18:56)
[2021-10-04] MEDS: ZALEPLON 5 MG CAPSULE PO PRN (20:39)
[2021-10-04] MEDS: LEVOFLOXACIN INJ 750 MG/150 ML PREMIX IV SCH (20:39)
[2021-10-04] MEDS: ALBUTEROL 2.5 MG/3 ML NEB RESP TX PRN (21:15)
[2021-10-05] MEDS: VANCOMYCIN INJ 1,500 MG in SODIUM CHLORIDE 0.9% 500 ML IV SCH ×3 (04:12→17:18)
[2021-10-05] MEDS: SODIUM CHLORIDE 0.45% 1,000 ML IV SCH (04:12)
[2021-10-05 05:43] LABS: Basophils % 0.6 % (0.0-0.8); Eosinophils # 0.2 10*3/uL (0.0-0.87); Eosinophils % 4.1 % (0.00-10.9); Hematocrit 27.1 VOL% (42.0-52.0); Hemoglobin 8.7 GM/DL (14.0-18.0); Immature Granulocytes % 0.2 %; Immature Granulocytes Absolute 0.01 #; Lymphocytes # 1.7 10*3/uL (1.4-4.0); Lymphocytes % 31.1 % (21.2-54.2); Mean Corpuscular HGB Conc 32.1 GM/DL (32-36); Mean Corpuscular Volume 89.4 FL (87-102); Mean Platelet Volume 9.4 FL (9.6-12.0); Monocytes # 0.5 10*3/uL (0.11-0.8); Monocytes % 9.2 % (1.7-12.7); Neutrophils % 54.8 % (38.7-73.9); Platelet Count 280 T/CUMM (130-400); Red Blood Count 3.03 MC/CUMM (3.8-5.5); Red Cell Distribution Width 13.5 % (9.3-17.3); White Blood Count 5.4 T/CUMM (4-12)
[2021-10-05 05:59] LABS: Calcium 8.7 MG/DL (8.5-10.1); Osmolality,Calculated 280.4 MOS/KG (273-304); Potassium 3.3 MMOL/L (3.5-5.1)
[2021-10-05] MEDS ORDERED: POTASSIUM CHLORIDE 20 MEQ TABLET PO ONE (07:43)
[2021-10-05 08:05] LABS: % Iron Saturation 17.1 % (18-50)
[2021-10-05 08:19] LABS: Folate 9.93 NG/ML (5.38-24.0)
[2021-10-05] MEDS: PANTOPRAZOLE 40 MG TABLET PO SCH (10:17)
[2021-10-05] MEDS: POLYETHYLENE GLYCOL POWDER 17 GM PACK PO SCH (10:17)
[2021-10-05] MEDS: DOCUSATE SODIUM 100 MG CAPSULE PO SCH ×2 (10:18→20:51)
[2021-10-05] MEDS: LOSARTAN/HCTZ 50-12.5 MG TABLET PO SCH (10:18)
[2021-10-05] MEDS: POTASSIUM CHLORIDE 10 MEQ TABLET PO SCH ×2 (10:18→20:50)
[2021-10-05] MEDS: FERROUS SULFATE 325 MG TABLET PO SCH (10:18)
[2021-10-05] MEDS: LEVOFLOXACIN INJ 750 MG/150 ML PREMIX IV SCH (17:12)
[2021-10-05] MEDS: MORPHINE 2 MG/1 ML SYRINGE IV PRN ×2 (17:13→22:33)
[2021-10-05] MEDS: ENOXAPARIN 40 MG/0.4 ML SYRINGE SUBCUT SCH (20:51)
[2021-10-05] MEDS ORDERED: diphenhydrAMINE CAP 25 MG CAPSULE PO ONE (23:14)
[2021-10-06] MEDS: MORPHINE 2 MG/1 ML SYRINGE IV PRN ×5 (02:11→23:40)
[2021-10-06 06:08] LABS: Calcium 9.3 MG/DL (8.5-10.1); Osmolality,Calculated 276.4 MOS/KG (273-304); Potassium 3.8 MMOL/L (3.5-5.1)
[2021-10-06 06:18] LABS: Basophils % 0.6 % (0.0-0.8); Eosinophils # 0.3 10*3/uL (0.0-0.87); Eosinophils % 6.3 % (0.00-10.9); Hematocrit 27.3 VOL% (42.0-52.0); Hemoglobin 8.9 GM/DL (14.0-18.0); Immature Granulocytes % 0.4 %; Immature Granulocytes Absolute 0.02 #; Lymphocytes # 2.3 10*3/uL (1.4-4.0); Lymphocytes % 41.8 % (21.2-54.2); Mean Corpuscular HGB Conc 32.6 GM/DL (32-36); Mean Corpuscular Volume 89.5 FL (87-102); Mean Platelet Volume 9.4 FL (9.6-12.0); Monocytes # 0.5 10*3/uL (0.11-0.8); Monocytes % 9.2 % (1.7-12.7); Neutrophils % 41.7 % (38.7-73.9); Platelet Count 306 T/CUMM (130-400); Red Blood Count 3.05 MC/CUMM (3.8-5.5); Red Cell Distribution Width 13.3 % (9.3-17.3); White Blood Count 5.4 T/CUMM (4-12)
[2021-10-06 09:16] LABS: Ovalocytes Few; Platelet Estimate Normal
[2021-10-06] MEDS: DOCUSATE SODIUM 100 MG CAPSULE PO SCH ×2 (09:17→20:29)
[2021-10-06] MEDS: LOSARTAN/HCTZ 50-12.5 MG TABLET PO SCH (09:18)
[2021-10-06] MEDS: PANTOPRAZOLE 40 MG TABLET PO SCH (09:18)
[2021-10-06] MEDS: POTASSIUM CHLORIDE 10 MEQ TABLET PO SCH ×2 (09:18→20:28)
[2021-10-06] MEDS: POLYETHYLENE GLYCOL POWDER 17 GM PACK PO SCH (09:18)
[2021-10-06] MEDS: FERROUS SULFATE 325 MG TABLET PO SCH (09:18)
[2021-10-06] MEDS: SIMETHICONE CHEW 125 MG TABLET PO PRN (14:18)
[2021-10-06] MEDS: ALBUTEROL 2.5 MG/3 ML NEB RESP TX PRN (16:50)
[2021-10-06] MEDS: LEVOFLOXACIN INJ 750 MG/150 ML PREMIX IV SCH (17:05)
[2021-10-06] MEDS: ENOXAPARIN 40 MG/0.4 ML SYRINGE SUBCUT SCH (20:28)
[2021-10-06] MEDS: VANCOMYCIN INJ 1,500 MG in SODIUM CHLORIDE 0.9% 500 ML IV SCH (20:34)
[2021-10-06] MEDS: diphenhydrAMINE CAP 25 MG CAPSULE PO PRN (21:01)
[2021-10-07] MEDS: MORPHINE 2 MG/1 ML SYRINGE IV PRN ×4 (03:53→23:05)
[2021-10-07 05:38] LABS: Basophils % 0.4 % (0.0-0.8); Eosinophils # 0.3 10*3/uL (0.0-0.87); Eosinophils % 5.8 % (0.00-10.9); Hemoglobin 8.9 GM/DL (14.0-18.0); Immature Granulocytes % 0.4 %; Immature Granulocytes Absolute 0.02 #; Lymphocytes # 1.8 10*3/uL (1.4-4.0); Lymphocytes % 31.2 % (21.2-54.2); Mean Corpuscular Volume 87.9 FL (87-102); Mean Platelet Volume 9.4 FL (9.6-12.0); Monocytes # 0.5 10*3/uL (0.11-0.8); Monocytes % 9.2 % (1.7-12.7); Platelet Count 262 T/CUMM (130-400); Red Blood Count 3.07 MC/CUMM (3.8-5.5); Red Cell Distribution Width 13.2 % (9.3-17.3); White Blood Count 5.7 T/CUMM (4-12)
[2021-10-07 05:55] LABS: Calcium 9.3 MG/DL (8.5-10.1); Osmolality,Calculated 272.7 MOS/KG (273-304); Potassium 3.5 MMOL/L (3.5-5.1)
[2021-10-07 06:13] LABS: Platelet Estimate Adequate
[2021-10-07] MEDS: POTASSIUM CHLORIDE 10 MEQ TABLET PO SCH ×2 (10:17→20:09)
[2021-10-07] MEDS: POLYETHYLENE GLYCOL POWDER 17 GM PACK PO SCH (10:17)
[2021-10-07] MEDS: PANTOPRAZOLE 40 MG TABLET PO SCH (10:17)
[2021-10-07] MEDS: LOSARTAN/HCTZ 50-12.5 MG TABLET PO SCH (10:17)
[2021-10-07] MEDS: DOCUSATE SODIUM 100 MG CAPSULE PO SCH ×2 (10:17→20:09)
[2021-10-07] MEDS: FERROUS SULFATE 325 MG TABLET PO SCH (10:19)
[2021-10-07] MEDS ORDERED: LEVOFLOXACIN 750 MG TABLET PO ONE (11:51)
[2021-10-07] MEDS ORDERED: AMOXICILLIN/CLAV 500 MG TABLET PO SCH (12:00)
[2021-10-07] MEDS ORDERED: LEVOFLOXACIN 750 MG TABLET PO SCH (13:00)
[2021-10-07] MEDS: ALBUTEROL 2.5 MG/3 ML NEB RESP TX PRN (17:35)
[2021-10-07] MEDS: ENOXAPARIN 40 MG/0.4 ML SYRINGE SUBCUT SCH (20:10)
[2021-10-07] MEDS: diphenhydrAMINE CAP 25 MG CAPSULE PO PRN (20:39)
[2021-10-07] MEDS: VANCOMYCIN INJ 1,500 MG in SODIUM CHLORIDE 0.9% 500 ML IV SCH (23:06)
[2021-10-08] MEDS: MORPHINE 2 MG/1 ML SYRINGE IV PRN ×4 (03:12→20:23)
[2021-10-08 04:47] LABS: Basophils % 0.4 % (0.0-0.8); Eosinophils # 0.3 10*3/uL (0.0-0.87); Eosinophils % 5.1 % (0.00-10.9); Hematocrit 27.4 VOL% (42.0-52.0); Hemoglobin 8.9 GM/DL (14.0-18.0); Immature Granulocytes % 0.4 %; Immature Granulocytes Absolute 0.02 #; Lymphocytes % 35.4 % (21.2-54.2); Mean Corpuscular HGB Conc 32.5 GM/DL (32-36); Mean Corpuscular Volume 87.3 FL (87-102); Mean Platelet Volume 9.6 FL (9.6-12.0); Monocytes # 0.5 10*3/uL (0.11-0.8); Monocytes % 8.8 % (1.7-12.7); Neutrophils % 49.9 % (38.7-73.9); Platelet Count 233 T/CUMM (130-400); Red Blood Count 3.14 MC/CUMM (3.8-5.5); Red Cell Distribution Width 13.4 % (9.3-17.3); White Blood Count 5.7 T/CUMM (4-12)
[2021-10-08 05:02] LABS: Calcium 9.1 MG/DL (8.5-10.1)
[2021-10-08 05:03] LABS: Osmolality,Calculated 273.8 MOS/KG (273-304); Potassium 3.4 MMOL/L (3.5-5.1)
[2021-10-08] MEDS: POLYETHYLENE GLYCOL POWDER 17 GM PACK PO SCH (09:10)
[2021-10-08] MEDS: LOSARTAN/HCTZ 50-12.5 MG TABLET PO SCH (09:11)
[2021-10-08] MEDS: FERROUS SULFATE 325 MG TABLET PO SCH (09:11)
[2021-10-08] MEDS: DOCUSATE SODIUM 100 MG CAPSULE PO SCH ×2 (09:11→20:18)
[2021-10-08] MEDS: PANTOPRAZOLE 40 MG TABLET PO SCH (09:11)
[2021-10-08] MEDS: POTASSIUM CHLORIDE 10 MEQ TABLET PO SCH ×2 (09:11→20:18)
[2021-10-08] MEDS: SIMETHICONE CHEW 125 MG TABLET PO PRN ×2 (09:12→20:45)
[2021-10-08] MEDS: ENOXAPARIN 40 MG/0.4 ML SYRINGE SUBCUT SCH (20:18)
[2021-10-08] MEDS: VANCOMYCIN INJ 1,500 MG in SODIUM CHLORIDE 0.9% 500 ML IV SCH (20:45)
[2021-10-08] MEDS: diphenhydrAMINE CAP 25 MG CAPSULE PO PRN (22:41)
[2021-10-09 05:33] LABS: Basophils % 0.6 % (0.0-0.8); Eosinophils # 0.3 10*3/uL (0.0-0.87); Eosinophils % 4.8 % (0.00-10.9); Hematocrit 28.5 VOL% (42.0-52.0); Hemoglobin 9.3 GM/DL (14.0-18.0); Immature Granulocytes % 0.1 %; Immature Granulocytes Absolute 0.01 #; Lymphocytes # 2.5 10*3/uL (1.4-4.0); Lymphocytes % 36.9 % (21.2-54.2); Mean Corpuscular HGB Conc 32.6 GM/DL (32-36); Mean Corpuscular Volume 88.8 FL (87-102); Mean Platelet Volume 9.9 FL (9.6-12.0); Monocytes # 0.7 10*3/uL (0.11-0.8); Monocytes % 10.3 % (1.7-12.7); Neutrophils % 47.3 % (38.7-73.9); Platelet Count 266 T/CUMM (130-400); Red Blood Count 3.21 MC/CUMM (3.8-5.5); Red Cell Distribution Width 13.4 % (9.3-17.3); White Blood Count 6.9 T/CUMM (4-12)
[2021-10-09 05:45] LABS: Calcium 9.1 MG/DL (8.5-10.1); Osmolality,Calculated 273.8 MOS/KG (273-304); Potassium 3.7 MMOL/L (3.5-5.1)
[2021-10-09] MEDS: MORPHINE 2 MG/1 ML SYRINGE IV PRN (05:52)
[2021-10-09] MEDS: DOCUSATE SODIUM 100 MG CAPSULE PO SCH (11:33)
[2021-10-09] MEDS: FERROUS SULFATE 325 MG TABLET PO SCH (11:33)
[2021-10-09] MEDS: PANTOPRAZOLE 40 MG TABLET PO SCH (11:33)
[2021-10-09] MEDS: POTASSIUM CHLORIDE 10 MEQ TABLET PO SCH (11:33)
[2021-10-09] MEDS: LOSARTAN/HCTZ 50-12.5 MG TABLET PO SCH (11:34)
[2021-10-09] MEDS: POLYETHYLENE GLYCOL POWDER 17 GM PACK PO SCH (11:34)
[2021-10-09] MEDS: SIMETHICONE CHEW 125 MG TABLET PO PRN (11:38)
[2021-10-09 13:10] VITALS: BP 113/75
== END 2021-10-09 13:45 | DRG 988 ==
LOC: N.ED 15:22 → SUATTDRO 17:54 → N.5E 17:54
PROVIDERS: ADMIT Internal Medicine; ATTEND Internal Medicine

== ENCOUNTER 2021-12-12 22:29 | Inpatient (IN) ==
[2021-12-12] MEDS ORDERED: SODIUM CHLORIDE 0.9% 1,000 ML IV STA (23:43)
[2021-12-12] MEDS ORDERED: VANCOMYCIN INJ 1,000 MG in SODIUM CHLORIDE 0.9% 250 ML IV STA (23:43)
[2021-12-12] MEDS ORDERED: PIPERACILLIN/TAZOBACTAM 3,375 MG in SODIUM CHLORIDE 0.9% 100 ML IV STA (23:43)
[2021-12-13 00:03] LABS: Alanine Aminotransferase 12 U/L (16-61); Albumin 3.3 G/DL (3.4-5.0); Alkaline Phosphatase 65 U/L (45-117); Aspartate Amino Transferase 11 U/L (0-37); Bilirubin,Total < 0.39 MG/DL (0.20-1.00); Blood Urea Nitrogen 18 MG/DL (7-18); Calcium 8.9 MG/DL (8.5-10.1); Carbon Dioxide 28 MMOL/L (21-32); Chloride 107 MMOL/L (98-107); Glucose 100 MG/DL (74-106); Osmolality,Calculated 284.1 MOS/KG (273-304); Potassium 3.3 MMOL/L (3.5-5.1); Sodium 142 MMOL/L (136-145); Total Protein 6.6 G/DL (6.4-8.2)
[2021-12-13 00:30] LABS: Mucus,Urine Occasional /LPF (Occasional); RBC,Urine 2 /HPF (0-4)
[2021-12-13 00:31] LABS: Bilirubin,Urine Negative (Negative); Blood, Urine Negative (Negative); Glucose,Urine (UA) Negative (Negative); Ketones,Urine Negative (Negative); Nitrite,Urine Negative (Negative); Protein,Urine Negative (Negative); Urine Appearance Clear (Clear); Urine Color Yellow (Yellow); Urine Specific Gravity 1.025 (1.001-1.035); Urine Urobilinogen 0.2 eU/dL (<2.0)
[2021-12-13 00:33] LABS: Basophils % 0.3 % (0.0-0.8); Eosinophils # 0.2 10*3/uL (0.0-0.87); Eosinophils % 1.6 % (0.00-10.9); Hematocrit 28.5 VOL% (42.0-52.0); Hemoglobin 9.4 GM/DL (14.0-18.0); Immature Granulocytes % 0.4 %; Immature Granulocytes Absolute 0.04 #; Lymphocytes # 2.1 10*3/uL (1.4-4.0); Lymphocytes % 21.2 % (21.2-54.2); Mean Corpuscular Volume 89.3 FL (87-102); Mean Platelet Volume 10.4 FL (9.6-12.0); Monocytes # 0.9 10*3/uL (0.11-0.8); Monocytes % 8.9 % (1.7-12.7); Neutrophils % 67.6 % (38.7-73.9); Platelet Count 250 T/CUMM (130-400); Red Blood Count 3.19 MC/CUMM (3.8-5.5); Red Cell Distribution Width 14.1 % (9.3-17.3); White Blood Count 10.1 T/CUMM (4-12)
[2021-12-13 01:09] LABS: Barbiturates Screen,Urine Negative (Negative); Benzodiazepines Screen,Urine Negative (Negative); Cannabinoid Screen,Urine Positive (Negative); Opiate Screen,Urine Negative (Negative); Phencyclidine Screen,Urine Negative (Negative)
[2021-12-13] MEDS ORDERED: ONDANSETRON 4 MG/2 ML VIAL IV PRN (01:29)
[2021-12-13] MEDS ORDERED: GLUCAGON 1 MG VIAL IM PRN (01:29)
[2021-12-13] MEDS ORDERED: ACETAMINOPHEN 325 MG TABLET PO PRN (01:29)
[2021-12-13] MEDS ORDERED: POTASSIUM CHLORIDE RIDER 10 MEQ/100 ML PREMIX IV PRN (01:35)
[2021-12-13] MEDS ORDERED: MAGNESIUM SULF RIDER 4 GM/100 ML PREMIX IV PRN (01:35)
[2021-12-13] MEDS ORDERED: MAGNESIUM SULF RIDER 2 GM/50 ML PREMIX IV PRN (01:35)
[2021-12-13] MEDS ORDERED: POTASSIUM CHLORIDE 20 MEQ TABLET PO STA (01:37)
[2021-12-13] MEDS ORDERED: DEXTROSE 10% 250 ML BAG IV PRN (01:39)
[2021-12-13] MEDS ORDERED: diphenhydrAMINE CAP 25 MG CAPSULE PO STA (01:45)
[2021-12-13 06:19] LABS: Basophils % 0.5 % (0.0-0.8); Eosinophils # 0.2 10*3/uL (0.0-0.87); Eosinophils % 2.1 % (0.00-10.9); Hemoglobin 9.2 GM/DL (14.0-18.0); Immature Granulocytes % 0.4 %; Immature Granulocytes Absolute 0.03 #; Lymphocytes % 26.8 % (21.2-54.2); Mean Corpuscular HGB Conc 31.7 GM/DL (32-36); Mean Corpuscular Volume 90.6 FL (87-102); Mean Platelet Volume 10.2 FL (9.6-12.0); Monocytes # 0.7 10*3/uL (0.11-0.8); Monocytes % 10.2 % (1.7-12.7); Platelet Count 221 T/CUMM (130-400); Red Cell Distribution Width 13.9 % (9.3-17.3); White Blood Count 7.3 T/CUMM (4-12)
[2021-12-13 06:30] LABS: Calcium 8.5 MG/DL (8.5-10.1); Potassium 3.4 MMOL/L (3.5-5.1)
[2021-12-13] MEDS ORDERED: ALBUTEROL INHALER 18 GM INH ONE (07:53)
[2021-12-13] MEDS ORDERED: FAMOTIDINE 20 MG/2 ML VIAL IV ONE (07:54)
[2021-12-13] MEDS ORDERED: LIDOCAINE 2% 5 ML VIAL ONE (07:58)
[2021-12-13] MEDS ORDERED: propofoL 200 MG/20 ML VIAL IV ONE (07:58)
[2021-12-13] MEDS ORDERED: SEVOFLURANE 1 UNIT/15 MINUTE INH ONE ×2 (07:58→09:47)
[2021-12-13] MEDS ORDERED: fentaNYL 100 MCG/2 ML VIAL ONE (07:59)
[2021-12-13] MEDS ORDERED: MIDAZOLAM 2 MG/2 ML VIAL ONE (07:59)
[2021-12-13] MEDS ORDERED: ETOMIDATE 40 MG/20 ML VIAL IV ONE (09:01)
[2021-12-13] MEDS ORDERED: ePHEDrine 50 MG/ML VIAL ONE (09:12)
[2021-12-13] MEDS ORDERED: ONDANSETRON 4 MG/2 ML VIAL ONE (09:31)
[2021-12-13] MEDS ORDERED: LACTATED RINGERS 1,000 ML IV ONE (09:31)
[2021-12-13] MEDS ORDERED: ZINC OXIDE PASTE 113 GM TUBE TOP PRN (11:44)
[2021-12-13] MEDS: VANCOMYCIN INJ 1,500 MG in SODIUM CHLORIDE 0.9% 500 ML IV SCH ×2 (12:06→21:07)
[2021-12-13] MEDS: DOCUSATE SODIUM 100 MG CAPSULE PO SCH ×2 (12:06→21:06)
[2021-12-13] MEDS: ENOXAPARIN 40 MG/0.4 ML SYRINGE SUBCUT SCH (12:06)
[2021-12-13] MEDS ORDERED: MAGNESIUM SULF RIDER 2 GM/50 ML PREMIX IV ONE (14:07)
[2021-12-13] MEDS: PIPERACILLIN/TAZOBACTAM 3,375 MG in SODIUM CHLORIDE 0.9% 100 ML IV SCH ×2 (14:21→17:21)
[2021-12-13] MEDS ORDERED: VANCOMYCIN INJ 1,500 MG in SODIUM CHLORIDE 0.9% 250 ML IV SCH (14:30)
[2021-12-13] MEDS ORDERED: TUBERCULIN SKIN TEST 0.1 ML SYRINGE INTRADERM ONE (15:00)
[2021-12-13 15:19] LABS: Calcium 8.9 MG/DL (8.5-10.1); Osmolality,Calculated 278.4 MOS/KG (273-304); Potassium 3.6 MMOL/L (3.5-5.1)
[2021-12-13 15:24] LABS: Folate 19.31 NG/ML (5.38-24.0)
[2021-12-13] MEDS: POTASSIUM CHLORIDE 10 MEQ TABLET PO SCH (17:26)
[2021-12-13] MEDS: diphenhydrAMINE CAP 25 MG CAPSULE PO PRN (21:06)
[2021-12-14] MEDS: PIPERACILLIN/TAZOBACTAM 3,375 MG in SODIUM CHLORIDE 0.9% 100 ML IV SCH ×3 (02:19→16:58)
[2021-12-14 06:10] LABS: Basophils % 0.5 % (0.0-0.8); Eosinophils # 0.2 10*3/uL (0.0-0.87); Eosinophils % 3.2 % (0.00-10.9); Hematocrit 27.5 VOL% (42.0-52.0); Hemoglobin 8.8 GM/DL (14.0-18.0); Immature Granulocytes % 0.2 %; Immature Granulocytes Absolute 0.01 #; Lymphocytes # 1.6 10*3/uL (1.4-4.0); Mean Corpuscular Volume 91.4 FL (87-102); Mean Platelet Volume 10.1 FL (9.6-12.0); Monocytes # 0.6 10*3/uL (0.11-0.8); Monocytes % 10.3 % (1.7-12.7); Neutrophils % 60.8 % (38.7-73.9); Platelet Count 205 T/CUMM (130-400); Red Blood Count 3.01 MC/CUMM (3.8-5.5); Red Cell Distribution Width 13.8 % (9.3-17.3); White Blood Count 6.2 T/CUMM (4-12)
[2021-12-14] MEDS: ENOXAPARIN 40 MG/0.4 ML SYRINGE SUBCUT SCH (08:26)
[2021-12-14] MEDS: VANCOMYCIN INJ 1,500 MG in SODIUM CHLORIDE 0.9% 500 ML IV SCH ×2 (08:27→20:56)
[2021-12-14] MEDS: POLYETHYLENE GLYCOL POWDER 17 GM PACK PO SCH (08:27)
[2021-12-14] MEDS: DOCUSATE SODIUM 100 MG CAPSULE PO SCH ×2 (08:28→20:55)
[2021-12-14] MEDS: SERTRALINE 25 MG TABLET PO SCH (08:28)
[2021-12-14] MEDS: LOSARTAN/HCTZ 50-12.5 MG TABLET PO SCH (08:28)
[2021-12-14] MEDS: POTASSIUM CHLORIDE 20 MEQ TABLET PO PRN ×2 (08:51→11:37)
[2021-12-14] MEDS: POTASSIUM CHLORIDE 10 MEQ TABLET PO SCH ×2 (08:51→16:58)
[2021-12-14] MEDS: diphenhydrAMINE CAP 25 MG CAPSULE PO PRN (20:55)
[2021-12-15] MEDS: PIPERACILLIN/TAZOBACTAM 3,375 MG in SODIUM CHLORIDE 0.9% 100 ML IV SCH ×3 (04:42→16:30)
[2021-12-15 06:36] LABS: Basophils % 0.5 % (0.0-0.8); Eosinophils # 0.2 10*3/uL (0.0-0.87); Eosinophils % 2.5 % (0.00-10.9); Hemoglobin 9.3 GM/DL (14.0-18.0); Immature Granulocytes % 0.2 %; Immature Granulocytes Absolute 0.01 #; Lymphocytes # 1.7 10*3/uL (1.4-4.0); Lymphocytes % 27.1 % (21.2-54.2); Mean Corpuscular HGB Conc 32.1 GM/DL (32-36); Mean Corpuscular Volume 90.3 FL (87-102); Monocytes # 0.6 10*3/uL (0.11-0.8); Monocytes % 9.5 % (1.7-12.7); Neutrophils % 60.2 % (38.7-73.9); Platelet Count 217 T/CUMM (130-400); Red Blood Count 3.21 MC/CUMM (3.8-5.5); Red Cell Distribution Width 13.8 % (9.3-17.3); White Blood Count 6.3 T/CUMM (4-12)
[2021-12-15 06:46] LABS: Calcium 9.4 MG/DL (8.5-10.1); Osmolality,Calculated 272.7 MOS/KG (273-304); Potassium 3.5 MMOL/L (3.5-5.1)
[2021-12-15] MEDS: DOCUSATE SODIUM 100 MG CAPSULE PO SCH ×2 (08:50→22:15)
[2021-12-15] MEDS: LOSARTAN/HCTZ 50-12.5 MG TABLET PO SCH (08:50)
[2021-12-15] MEDS: POTASSIUM CHLORIDE 10 MEQ TABLET PO SCH ×2 (08:55→16:30)
[2021-12-15] MEDS: ENOXAPARIN 40 MG/0.4 ML SYRINGE SUBCUT SCH (09:03)
[2021-12-15] MEDS: POLYETHYLENE GLYCOL POWDER 17 GM PACK PO SCH (09:04)
[2021-12-15] MEDS: SERTRALINE 25 MG TABLET PO SCH (09:04)
[2021-12-15] MEDS: diphenhydrAMINE CAP 25 MG CAPSULE PO PRN ×2 (16:30→23:04)
[2021-12-15] MEDS: ALBUTEROL 2.5 MG/3 ML NEB RESP TX PRN (17:30)
[2021-12-15] MEDS ORDERED: VANCOMYCIN INJ 1,500 MG in SODIUM CHLORIDE 0.9% 500 ML IV SCH (21:00)
[2021-12-16] MEDS: PIPERACILLIN/TAZOBACTAM 3,375 MG in SODIUM CHLORIDE 0.9% 100 ML IV SCH ×2 (00:02→09:27)
[2021-12-16 05:26] LABS: Basophils % 0.4 % (0.0-0.8); Eosinophils # 0.2 10*3/uL (0.0-0.87); Eosinophils % 3.3 % (0.00-10.9); Hematocrit 27.7 VOL% (42.0-52.0); Immature Granulocytes % 0.2 %; Immature Granulocytes Absolute 0.01 #; Lymphocytes # 1.6 10*3/uL (1.4-4.0); Lymphocytes % 29.2 % (21.2-54.2); Mean Corpuscular HGB Conc 32.5 GM/DL (32-36); Mean Corpuscular Volume 89.6 FL (87-102); Mean Platelet Volume 10.1 FL (9.6-12.0); Monocytes # 0.6 10*3/uL (0.11-0.8); Monocytes % 11.4 % (1.7-12.7); Neutrophils % 55.5 % (38.7-73.9); Platelet Count 217 T/CUMM (130-400); Red Blood Count 3.09 MC/CUMM (3.8-5.5); Red Cell Distribution Width 14.2 % (9.3-17.3); White Blood Count 5.5 T/CUMM (4-12)
[2021-12-16 05:48] LABS: Eosinophils 5 % (0-10); Hypochromia Slight; Lymphocytes 24 % (20-55); Microcytosis Slight; Platelet Estimate Adequate; Total Cells Counted 100
[2021-12-16 05:54] LABS: Calcium 9.2 MG/DL (8.5-10.1); Osmolality,Calculated 274.7 MOS/KG (273-304); Potassium 3.3 MMOL/L (3.5-5.1)
[2021-12-16] MEDS: POTASSIUM CHLORIDE 10 MEQ TABLET PO SCH ×2 (08:57→16:37)
[2021-12-16] MEDS: SERTRALINE 25 MG TABLET PO SCH (08:57)
[2021-12-16] MEDS: POTASSIUM CHLORIDE 20 MEQ TABLET PO PRN ×3 (08:57→12:04)
[2021-12-16] MEDS: DOCUSATE SODIUM 100 MG CAPSULE PO SCH ×2 (08:57→22:01)
[2021-12-16] MEDS: POLYETHYLENE GLYCOL POWDER 17 GM PACK PO SCH (08:57)
[2021-12-16] MEDS: LOSARTAN/HCTZ 50-12.5 MG TABLET PO SCH (08:57)
[2021-12-16] MEDS: ENOXAPARIN 40 MG/0.4 ML SYRINGE SUBCUT SCH (08:57)
[2021-12-16] MEDS: CIPROFLOXACIN 500 MG TABLET PO SCH ×2 (09:48→16:37)
[2021-12-16] MEDS: cephALEXin 500 MG CAPSULE PO SCH ×2 (12:03→16:37)
[2021-12-16] MEDS: ALBUTEROL 2.5 MG/3 ML NEB RESP TX PRN ×2 (12:15→20:05)
[2021-12-16] MEDS ORDERED: POTASSIUM CHLORIDE 20 MEQ TABLET PO ONE (14:12)
[2021-12-17 06:25] LABS: Basophils % 0.7 % (0.0-0.8); Eosinophils # 0.2 10*3/uL (0.0-0.87); Eosinophils % 3.3 % (0.00-10.9); Hematocrit 30.9 VOL% (42.0-52.0); Immature Granulocytes % 0.3 %; Immature Granulocytes Absolute 0.02 #; Lymphocytes % 32.3 % (21.2-54.2); Mean Corpuscular HGB Conc 32.4 GM/DL (32-36); Mean Corpuscular Volume 89.6 FL (87-102); Monocytes # 0.7 10*3/uL (0.11-0.8); Monocytes % 10.9 % (1.7-12.7); Neutrophils % 52.5 % (38.7-73.9); Platelet Count 273 T/CUMM (130-400); Red Blood Count 3.45 MC/CUMM (3.8-5.5); Red Cell Distribution Width 14.1 % (9.3-17.3); White Blood Count 6.1 T/CUMM (4-12)
[2021-12-17 06:52] LABS: Calcium 9.7 MG/DL (8.5-10.1); Osmolality,Calculated 270.8 MOS/KG (273-304); Potassium 3.9 MMOL/L (3.5-5.1)
[2021-12-17] MEDS: ENOXAPARIN 40 MG/0.4 ML SYRINGE SUBCUT SCH (08:30)
[2021-12-17] MEDS: CIPROFLOXACIN 500 MG TABLET PO SCH ×2 (08:32→17:38)
[2021-12-17] MEDS: POTASSIUM CHLORIDE 10 MEQ TABLET PO SCH ×2 (08:33→17:38)
[2021-12-17] MEDS: DOCUSATE SODIUM 100 MG CAPSULE PO SCH ×2 (08:34→21:01)
[2021-12-17] MEDS: cephALEXin 500 MG CAPSULE PO SCH ×3 (08:34→17:38)
[2021-12-17] MEDS: SERTRALINE 25 MG TABLET PO SCH (08:35)
[2021-12-17] MEDS: LOSARTAN/HCTZ 50-12.5 MG TABLET PO SCH (08:36)
[2021-12-17] MEDS: POLYETHYLENE GLYCOL POWDER 17 GM PACK PO SCH (09:02)
[2021-12-17] MEDS: ALBUTEROL 2.5 MG/3 ML NEB RESP TX PRN (09:40)
[2021-12-17] MEDS: ACETIC ACID 0.25% IRRIGATION 1,000 ML BOTTLE IRRIG SCH (15:19)
[2021-12-17] MEDS: diphenhydrAMINE CAP 25 MG CAPSULE PO PRN (21:24)
[2021-12-18 05:05] LABS: Basophils # 0.1 10*3/uL (0.0-0.2); Basophils % 0.6 % (0.0-0.8); Eosinophils # 0.3 10*3/uL (0.0-0.87); Eosinophils % 3.1 % (0.00-10.9); Hematocrit 32.8 VOL% (42.0-52.0); Hemoglobin 10.5 GM/DL (14.0-18.0); Immature Granulocytes % 0.4 %; Immature Granulocytes Absolute 0.03 #; Lymphocytes # 2.6 10*3/uL (1.4-4.0); Lymphocytes % 32.5 % (21.2-54.2); Mean Corpuscular Volume 91.1 FL (87-102); Mean Platelet Volume 9.9 FL (9.6-12.0); Monocytes # 0.8 10*3/uL (0.11-0.8); Monocytes % 10.1 % (1.7-12.7); Neutrophils % 53.3 % (38.7-73.9); Platelet Count 320 T/CUMM (130-400); White Blood Count 7.9 T/CUMM (4-12)
[2021-12-18 05:21] LABS: Calcium 9.6 MG/DL (8.5-10.1); Osmolality,Calculated 274.8 MOS/KG (273-304); Potassium 3.8 MMOL/L (3.5-5.1)
[2021-12-18] MEDS: LOSARTAN/HCTZ 50-12.5 MG TABLET PO SCH (08:57)
[2021-12-18] MEDS: cephALEXin 500 MG CAPSULE PO SCH ×3 (08:57→16:39)
[2021-12-18] MEDS: DOCUSATE SODIUM 100 MG CAPSULE PO SCH ×2 (08:57→21:15)
[2021-12-18] MEDS: POLYETHYLENE GLYCOL POWDER 17 GM PACK PO SCH (08:58)
[2021-12-18] MEDS: POTASSIUM CHLORIDE 10 MEQ TABLET PO SCH ×2 (08:58→16:40)
[2021-12-18] MEDS: CIPROFLOXACIN 500 MG TABLET PO SCH ×2 (08:58→16:39)
[2021-12-18] MEDS: SERTRALINE 25 MG TABLET PO SCH (08:58)
[2021-12-18] MEDS: ENOXAPARIN 40 MG/0.4 ML SYRINGE SUBCUT SCH (09:00)
[2021-12-18] MEDS: ACETIC ACID 0.25% IRRIGATION 1,000 ML BOTTLE IRRIG SCH (11:27)
[2021-12-18] MEDS: diphenhydrAMINE CAP 25 MG CAPSULE PO PRN (21:15)
[2021-12-19] MEDS: cephALEXin 500 MG CAPSULE PO SCH ×3 (08:55→16:05)
[2021-12-19] MEDS: POTASSIUM CHLORIDE 10 MEQ TABLET PO SCH ×2 (08:55→16:05)
[2021-12-19] MEDS: CIPROFLOXACIN 500 MG TABLET PO SCH ×2 (08:55→16:05)
[2021-12-19] MEDS: ACETIC ACID 0.25% IRRIGATION 1,000 ML BOTTLE IRRIG SCH (09:00)
[2021-12-19] MEDS: POLYETHYLENE GLYCOL POWDER 17 GM PACK PO SCH (09:00)
[2021-12-19] MEDS: ENOXAPARIN 40 MG/0.4 ML SYRINGE SUBCUT SCH (09:00)
[2021-12-19] MEDS: LOSARTAN/HCTZ 50-12.5 MG TABLET PO SCH (09:00)
[2021-12-19] MEDS: DOCUSATE SODIUM 100 MG CAPSULE PO SCH (09:00)
[2021-12-19] MEDS: SERTRALINE 25 MG TABLET PO SCH (09:00)
[2021-12-19 12:22] VITALS: BP 131/60
== END 2021-12-19 16:13 | disposition swing bed (61) | DRG 464 ==
LOC: EDUNIT# → EDBD → N.3E 22:29 → N.ED 22:29 → N.3E 12-13 02:44
PROVIDERS: ADMIT Internal Medicine; ATTEND Internal Medicine

== ENCOUNTER 2022-05-14 16:01 | Inpatient (IN) ==
[2022-05-14 17:00] LABS: Basophils % 0.4 % (0.0-0.8); Eosinophils # 0.1 10*3/uL (0.0-0.87); Eosinophils % 1.4 % (0.00-10.9); Hematocrit 32.7 VOL% (42.0-52.0); Hemoglobin 10.6 GM/DL (14.0-18.0); Immature Granulocytes % 0.5 %; Immature Granulocytes Absolute 0.05 #; Lymphocytes % 20.5 % (21.2-54.2); Mean Corpuscular HGB Conc 32.4 GM/DL (32-36); Mean Corpuscular Volume 87.4 FL (87-102); Mean Platelet Volume 10.1 FL (9.6-12.0); Monocytes # 1.1 10*3/uL (0.11-0.8); Monocytes % 11.5 % (1.7-12.7); Neutrophils % 65.7 % (38.7-73.9); Platelet Count 248 T/CUMM (130-400); Red Blood Count 3.74 MC/CUMM (3.8-5.5); Red Cell Distribution Width 14.1 % (9.3-17.3); White Blood Count 9.7 T/CUMM (4-12)
[2022-05-14] MEDS ORDERED: PIPERACILLIN/TAZOBACTAM 3,375 MG in SODIUM CHLORIDE 0.9% 100 ML IV SCH (17:00)
[2022-05-14 17:21] LABS: INR 1.1; PT Patient Result 11.7 SECS (10.1-12.1); Partial Thromboplastin Time 31.6 SECS (23.7-32.9)
[2022-05-14 17:26] LABS: Osmolality,Calculated 276.8 MOS/KG (273-304); Potassium 3.8 MMOL/L (3.5-5.1)
[2022-05-14] MEDS ORDERED: VANCOMYCIN INJ 2,500 MG in SODIUM CHLORIDE 0.9% 500 ML IV ONE (17:30)
[2022-05-14] MEDS ORDERED: ONDANSETRON 4 MG/2 ML VIAL IV PRN (18:20)
[2022-05-14] MEDS ORDERED: ACETAMINOPHEN 325 MG TABLET PO PRN (18:20)
[2022-05-14] MEDS ORDERED: ALBUTEROL 2.5 MG/3 ML NEB RESP TX PRN (19:00)
[2022-05-14] MEDS ORDERED: ENOXAPARIN 40 MG/0.4 ML SYRINGE SUBCUT SCH (21:00)
[2022-05-14] MEDS ORDERED: CALCIUM CARBONATE CHEW 500 MG TABLET PO PRN (21:00)
[2022-05-14] MEDS: traZODone 50 MG TABLET PO SCH (22:45)
[2022-05-14] MEDS: GABAPENTIN 100 MG CAPSULE PO SCH (22:45)
[2022-05-14] MEDS: POTASSIUM CHLORIDE 20 MEQ TABLET PO SCH (22:45)
[2022-05-14] MEDS: DOCUSATE SODIUM 100 MG CAPSULE PO SCH (22:45)
[2022-05-15] MEDS: PIPERACILLIN/TAZOBACTAM 3,375 MG in SODIUM CHLORIDE 0.9% 100 ML IV SCH ×3 (02:00→16:08)
[2022-05-15 05:56] LABS: Calcium 8.9 MG/DL (8.5-10.1); Potassium 3.6 MMOL/L (3.5-5.1)
[2022-05-15] MEDS: VANCOMYCIN INJ 1,750 MG in SODIUM CHLORIDE 0.9% 500 ML IV SCH ×2 (06:50→20:46)
[2022-05-15 07:08] LABS: Basophils # 0.1 10*3/uL (0.0-0.2); Basophils % 0.6 % (0.0-0.8); Eosinophils # 0.2 10*3/uL (0.0-0.87); Eosinophils % 2.5 % (0.00-10.9); Hematocrit 32.1 VOL% (42.0-52.0); Hemoglobin 10.3 GM/DL (14.0-18.0); Immature Granulocytes % 0.5 %; Immature Granulocytes Absolute 0.04 #; Lymphocytes # 1.7 10*3/uL (1.4-4.0); Lymphocytes % 20.8 % (21.2-54.2); Mean Corpuscular HGB Conc 32.1 GM/DL (32-36); Mean Corpuscular Volume 88.2 FL (87-102); Mean Platelet Volume 10.5 FL (9.6-12.0); Monocytes % 11.8 % (1.7-12.7); Neutrophils % 63.8 % (38.7-73.9); Platelet Count 227 T/CUMM (130-400); Red Blood Count 3.64 MC/CUMM (3.8-5.5); Red Cell Distribution Width 14.2 % (9.3-17.3); White Blood Count 8.1 T/CUMM (4-12)
[2022-05-15 07:22] LABS: Albumin 3.4 G/DL (3.4-5.0); Bilirubin,Total 0.4 MG/DL (0.20-1.00); Calcium 9.1 MG/DL (8.5-10.1); Osmolality,Calculated 276.7 MOS/KG (273-304); Potassium 3.6 MMOL/L (3.5-5.1); Total Protein 7.2 G/DL (6.4-8.2)
[2022-05-15] MEDS: SERTRALINE 50 MG TABLET PO SCH (08:50)
[2022-05-15] MEDS: GABAPENTIN 100 MG CAPSULE PO SCH ×2 (08:50→20:22)
[2022-05-15] MEDS: POTASSIUM CHLORIDE 20 MEQ TABLET PO SCH ×2 (08:50→20:22)
[2022-05-15] MEDS: LOSARTAN/HCTZ 50-12.5 MG TABLET PO SCH (08:50)
[2022-05-15] MEDS: PANTOPRAZOLE 40 MG TABLET PO SCH (08:50)
[2022-05-15] MEDS: POLYETHYLENE GLYCOL POWDER 17 GM PACK PO SCH (08:50)
[2022-05-15] MEDS: DOCUSATE SODIUM 100 MG CAPSULE PO SCH ×2 (08:50→20:22)
[2022-05-15 12:08] LABS: Folate 14.8 NG/ML (5.38-24.0)
[2022-05-15] MEDS ORDERED: FAMOTIDINE 20 MG TABLET PO ONE (13:18)
[2022-05-15] MEDS: traZODone 50 MG TABLET PO SCH (20:22)
[2022-05-16] MEDS: PIPERACILLIN/TAZOBACTAM 3,375 MG in SODIUM CHLORIDE 0.9% 100 ML IV SCH ×2 (00:47→12:20)
[2022-05-16] MEDS: VANCOMYCIN INJ 1,750 MG in SODIUM CHLORIDE 0.9% 500 ML IV SCH ×3 (06:27→20:34)
[2022-05-16] MEDS ORDERED: LIDOCAINE 2% 5 ML VIAL ONE (06:36)
[2022-05-16] MEDS ORDERED: ONDANSETRON 4 MG/2 ML VIAL ONE (06:36)
[2022-05-16] MEDS ORDERED: MIDAZOLAM 2 MG/2 ML VIAL ONE (06:36)
[2022-05-16] MEDS ORDERED: fentaNYL 100 MCG/2 ML VIAL ONE (06:36)
[2022-05-16] MEDS ORDERED: SEVOFLURANE 1 UNIT/15 MINUTE INH ONE (06:36)
[2022-05-16] MEDS ORDERED: propofoL 200 MG/20 ML VIAL IV ONE ×3 (06:36→07:56)
[2022-05-16] MEDS ORDERED: LIDOCAINE 1% 5 ML VIAL ONE (06:40)
[2022-05-16] MEDS ORDERED: LACTATED RINGERS 1,000 ML IV SCH (07:00)
[2022-05-16] MEDS ORDERED: KETAMINE 500 MG/10 ML VIAL ONE (07:07)
[2022-05-16] MEDS ORDERED: ONDANSETRON 4 MG/2 ML VIAL IV PRN (08:32)
[2022-05-16 08:33] LABS: Hematocrit 30.9 VOL% (42.0-52.0); Hemoglobin 9.7 GM/DL (14.0-18.0)
[2022-05-16] MEDS: HYDROmorphone 1 MG/1 ML SYRINGE IV PRN ×2 (08:36→08:42)
[2022-05-16] MEDS: POTASSIUM CHLORIDE 20 MEQ TABLET PO SCH ×2 (09:36→21:09)
[2022-05-16] MEDS: PANTOPRAZOLE 40 MG TABLET PO SCH (09:36)
[2022-05-16] MEDS: DOCUSATE SODIUM 100 MG CAPSULE PO SCH ×2 (09:36→21:08)
[2022-05-16] MEDS: GABAPENTIN 100 MG CAPSULE PO SCH ×2 (09:36→21:08)
[2022-05-16] MEDS: SERTRALINE 50 MG TABLET PO SCH (09:36)
[2022-05-16] MEDS: LOSARTAN/HCTZ 50-12.5 MG TABLET PO SCH (09:36)
[2022-05-16] MEDS: POLYETHYLENE GLYCOL POWDER 17 GM PACK PO SCH (11:11)
[2022-05-16] MEDS: traZODone 50 MG TABLET PO SCH (21:08)
[2022-05-17 04:49] LABS: Hematocrit 28.4 VOL% (42.0-52.0); Hemoglobin 9.1 GM/DL (14.0-18.0)
[2022-05-17] MEDS ORDERED: SODIUM HYPOCHLORITE 0.25% IRRIG 473 ML BOTTLE TOP SCH (09:00)
[2022-05-17] MEDS: POLYETHYLENE GLYCOL POWDER 17 GM PACK PO SCH (10:02)
[2022-05-17] MEDS: SERTRALINE 50 MG TABLET PO SCH (10:02)
[2022-05-17] MEDS: GABAPENTIN 100 MG CAPSULE PO SCH (10:02)
[2022-05-17] MEDS: LOSARTAN/HCTZ 50-12.5 MG TABLET PO SCH (10:02)
[2022-05-17] MEDS: PANTOPRAZOLE 40 MG TABLET PO SCH (10:02)
[2022-05-17] MEDS: POTASSIUM CHLORIDE 20 MEQ TABLET PO SCH (10:02)
[2022-05-17] MEDS: DOCUSATE SODIUM 100 MG CAPSULE PO SCH (10:02)
[2022-05-17 11:53] VITALS: BP 122/66
== END 2022-05-17 13:50 | DRG 504 ==
LOC: EDUNIT# → N.ED 16:01 → SUATTDRO 18:20 → N.EDINP 18:20 → N.3E 21:34
PROVIDERS: ADMIT Internal Medicine; ATTEND Internal Medicine